=== PATIENT | female | born 1970 | race Caucasian/White ===

== ENCOUNTER 2022-09-02 16:39 | Emergency (ER) | payer SELFPAY ==
[2022-09-02 16:39] VITALS: BP 154/99; PULSE 109; RESP 20; TEMP 35.9; O2SAT 98
--- NOTE | 2022-09-02 17:00 | ED.DENTAL ---
HPI - Dental/Oral General Chief complaint: Dental/Oral Stated complaint: right side jaw pain and swelling Time Seen by Provider: 09/02/22 16:50 History of Present Illness HPI Narrative: This is a 51-year-old female, who denies past medical history, presenting to the emergency department complaining of jaw pain and swelling for the past day. The patient states 2 weeks ago she self diagnosed with strep and managed her symptoms at home without antibiotics. Overnight, she developed right jaw pain, described as dull, rated 5/10. She denies fevers, chills, difficulty breathing difficulty swallowing or drooling. Related Data Allergies Allergy/AdvReac Type Severity Reaction Status Date / Time Penicillins Allergy Unknown Verified 09/02/22 16:49 Review of Systems Review of Systems: CONSTITUTIONAL: Denies fever, chills, or sweats. EYES: Denies visual changes, redness, or discharge. ENT: Sore throat improving, right-sided jaw denies rhinorrhea, congestion, or otalgia. CARDIOVASCULAR: Denies chest pain, palpitations, or edema. RESPIRATORY: Denies cough or dyspnea. GASTROINTESTINAL: Denies abdominal pain, nausea, vomiting, or diarrhea. SKIN: Denies rash or itching. NEUROLOGIC: Denies headache, numbness, dizziness, or weakness. [facility] Social History Social History (Updated 09/02/22 @ 17:08 by Brandon Kirby MD) Smoking status: Former smoker Alcohol intake: current Substance use: current Substance use type: marijuana Exam Narrative: GENERAL: Well-developed, well-nourished, and in no acute distress. HEAD: Normocephalic, atraumatic. EYES: PERRLA and EOMI. ENT: Swelling of the right jaw and cheek without induration or erythema. The gingiva is erythematous and swollen, at tooth #29. There is no noted submental swelling. There is no noted purulent drainage from the salivary duct. Nares clear, no rhinorrhea or epistaxis. Mucous membranes moist. Oropharynx without tonsillar hypertrophy exudate or other lesions. NECK: Supple. Mild right anterior cervical lymphadenopathy with tenderness. No masses CHEST: Clear to auscultation. No respiratory distress. No wheezes rales or rhonchi HEART: Regular rate and rhythm. No murmur heard. Normal peripheral pulses. EXTREMITIES: Normal range of motion. No edema. SKIN: Warm, dry, no rash. NEURO: No focal deficits. Alert and oriented x3. PSYCH: Normal mood and affect. Course Course Emergency Course: 17:03 - Exam is consistent with dental abscess. There may be developing sialoadenitis. Not concerned for deep space infection of the neck or airway compromise at this time. Will treat with antibiotics and recommendation for sialagogues. I advised the patient to follow-up with her dentist. Discussed return and emergency precautions including signs/symptoms of sepsis and airway compromise. The patient voiced understanding and is comfortable with the plan. All questions answered to her satisfaction. Vital Signs Vital signs: Vital Signs Temperature 96.6 F L 09/02/22 16:39 Pulse Rate 109 H 09/02/22 16:39 Respiratory Rate 20 09/02/22 16:39 Blood Pressure 154/99 H 09/02/22 16:39 Pulse Oximetry 98 09/02/22 16:39 Oxygen Delivery Room Air 09/02/22 16:39 Temperature 96.6 F L 09/02/22 16:39 Pulse Rate 109 H 09/02/22 16:39 Respiratory Rate 20 09/02/22 16:39 Blood Pressure 154/99 H 09/02/22 16:39 Pulse Oximetry 98 09/02/22 16:39 Oxygen Delivery Room Air 09/02/22 16:39 MDM - Dental/Oral MDM Narrative Medical decision making narrative: Plan: Antibiotics dental follow-up Differential Diagnosis Differential diagnosis: Likely dental caries, toothache, dental abscess and other (Sialoadenitis, other) Discharge Plan Discharge Clinical Impression: Dental abscess, Dental caries Patient Disposition: Home, Self-Care Condition: Stable Instructions: Antibiotic Form, Dental Abscess (ED) Additional Instructions: You were seen in the [facility]
== END 2022-09-02 17:17 | disposition home or self-care (01) ==
LOC: CHSED 17:08
PROVIDERS: Emergency Provider Preventive Medicine Aerospace Medicine
DX: K04.7 Periapical abscess without sinus (principal); K02.9 Dental caries, unspecified; R68.84 Jaw pain; Z87.891 Personal history of nicotine dependence; F12.90 Cannabis use, unspecified, uncomplicated
CPT/HCPCS: 99283

== ENCOUNTER 2023-04-12 08:06 | Emergency (ER) | payer SELFPAY ==
[2023-04-12 08:07] VITALS: BP 159/100; PULSE 130; RESP 19; TEMP 36.5; O2SAT 98
[2023-04-12 08:50] LABS: Strep Group A RT-PCR NOT DETECTED (Negative)
[2023-04-12 09:00] LABS: SARS-CoV-2 RNA PCR Negative (Negative)
[2023-04-12 09:01] LABS: Influenza A QL RT-PCR Negative (Negative); Influenza B QL RT-PCR Negative (Negative); RSV RNA, RT-PCR Negative (Negative)
--- NOTE | 2023-04-12 09:05 | ED.URI ---
HPI - URI/Sore Throat General Chief Complaint: Upper Respiratory Infection Stated Complaint: sore throat/eye irritation Time Seen by Provider: 04/12/23 08:08 Source: patient Mode of arrival: ambulatory Limitations: no limitations History of Present Illness HPI Narrative: this is a 52-year-old female with a history of COPD presents with a complaints of sore throat sinus congestion and matting of her eyes sinus pressure bilateral ear pressure with no shortness of breath been low-grade fevers nasal congestion and drainage mild nonproductive cough no audible wheezing. MD elicited complaint: fever, sore throat, nasal congestion and sinus pain Related Data Home Medications Medication Instructions Recorded Confirmed aspirin 81 mg chewable tablet 81 mg PO DAILY 04/12/23 04/12/23 Allergies Allergy/AdvReac Type Severity Reaction Status Date / Time Penicillins Allergy Unknown Verified 09/02/22 16:49 latex AdvReac Itching Verified 04/12/23 08:16 Review of Systems Review of Systems: All systems reviewed & are unremarkable except as noted in HPI and below PMFSH Past Medical History Medical History COPD (chronic obstructive pulmonary disease) Social History Social History Smoking status: Former smoker Alcohol intake: current Substance use: current Substance use type: marijuana Exam Const: General: healthy appearing Nutritional Appearance: well nourished Orientation/consciousness: patient oriented x3 Limitations: no limitations HENMT: Ears: TM's normal bilaterally Face and sinus: sinus tenderness Mouth: Yes Normal oral and palatal mucosa present Other: frontal maxillary sinus tenderness with palpation Eyes: Conjunctivae: conjunctival abnormality Neck: Neck: normal visual inspection, no lymphadenopathy and no meningeal signs Chest: Chest palpation & inspection: normal inspection of the chest Resp: Effort & Inspection: normal respiratory effort Auscultation: clear to auscultation bilaterally Cardio: Rate: regular rate Rhythm: regular rhythm Course Course Emergency Course: patient had strep and COVID RSV influenza performed which were negative will be sending antibiotics to her pharmacy, advised patient to take Claritin [id number] and will send Flonase. Vital Signs Vital signs: Vital Signs Temperature 36.5 C 04/12/23 08:07 Pulse Rate 130 H 04/12/23 08:07 Respiratory Rate 19 04/12/23 08:07 Blood Pressure 159/100 H 04/12/23 08:07 Pulse Oximetry 98 04/12/23 08:07 Oxygen Delivery Room Air 04/12/23 08:07 Temperature 36.5 C 04/12/23 08:07 Pulse Rate 130 H 04/12/23 08:07 Respiratory Rate 19 04/12/23 08:07 Blood Pressure 159/100 H 04/12/23 08:07 Pulse Oximetry 98 04/12/23 08:07 Oxygen Delivery Room Air 04/12/23 08:07 MDM - URI/Sore Throat Lab Data Labs: Lab Results 04/12/23 Range/Units 08:29 Influenza A (RT-PCR) Negative (Negative) Influenza B (RT-PCR) Negative (Negative) RSV (RT-PCR) Negative (Negative) SARS-CoV-2 RNA (RT-PCR) Negative (Negative) Group A Strep (PCR) Not detected (Negative) Critical Care Time Critical Care Time Critical Care Time: No Discharge Plan Discharge Clinical Impression: Sinusitis Qualifiers: Sinusitis location: frontal Chronicity: acute Recurrence: non-recurrent Qualified Code(s): J01.10 - Acute frontal sinusitis, unspecified Patient Disposition: Home, Self-Care Condition: Stable Instructions: Antibiotic Form, Sinusitis (ED) Additional Instructions: Advised take medicine as prescribed, can take Claritin [id number] daily for 1 week and take antibiotics and Flonase that were sent to pharmacy and follow up with primary if symptoms persist or worsen. Prescriptions: New azithromycin [Zithromax [id number]] 250 mg tablet See Rx Instructions .RO
[2023-04-12 09:35] VITALS: BP 154/98; PULSE 88; RESP 19; TEMP 36.8; O2SAT 98
== END 2023-04-12 09:45 | disposition home or self-care (01) ==
PROVIDERS: Emergency Provider Emergency Medicine
DX: J01.10 Acute frontal sinusitis, unspecified (principal); J44.9 Chronic obstructive pulmonary disease, unspecified; Z79.82 Long term (current) use of aspirin; Z87.891 Personal history of nicotine dependence; Z20.822 Contact with and (suspected) exposure to COVID-19
CPT/HCPCS: 87637; 87651; 99283